=== PATIENT | male | born 1990 | race Caucasian/White ===

== ENCOUNTER 2021-04-22 06:45 | Inpatient (IN) | payer OTHER ==
[~2021-04-22] VITALS: Ht 182.9 cm; Wt 117.9 kg
[2021-04-22] VITALS: BP 148/78
[2021-04-22] MEDS ORDERED: PANTOPRAZOLE 40 MG VIAL IV ONE ×2 (07:00→15:30)
[2021-04-22] MEDS ORDERED: IV NS 0.9% 1,000 ML BAG IV ONE (07:00)
[2021-04-22] MEDS ORDERED: ONDANSETRON HCL/PF - ER 4 MG/2 ML VIAL IV ONE ×2 (07:00→15:00)
[2021-04-22] MEDS ORDERED: PANTOPRAZOLE 40 MG VIAL ONE ×2 (07:05→15:23)
[2021-04-22] MEDS ORDERED: ONDANSETRON HCL/PF 4 MG/2 ML VIAL ONE ×3 (07:05→14:35)
--- NOTE | 2021-04-22 07:11 | NUR ---
PATIENT BIB AUNT FOR C/O ABD PAIN, N/V. PATIENT THAN ADMITTED ON DRINKING BLEACH. PATIENT REFUSED TO ANSWER ANY MORE QUESTIONS AT THIS TIME. PATIENT IS A/O, RR EVEN AND UNLABORED, NO SOB NOTED. PATIENT CONNECTED TO CARDIAC AND POX, MONITOR. PATIENT DEINED SI/HI AT THIS TIME. SITTER AT BEDSIDE, WILL CONTINUE TO MONITOR.
[2021-04-22 07:39] LABS: BASOPHILS % (AUTO) 0.4 % (0.0-2.0); EOSINOPHILS % (AUTO) 0.5 % (0.0-6.0); HEMATOCRIT 44 % (39-51); HEMOGLOBIN 15.1 g/dL (13.5-17.5); LYMPHOCYTES # (AUTO) 0.8 K/uL (0.8-4.8); LYMPHOCYTES % (AUTO) 7.1 % (20.0-44.0); MEAN CORPUSCULAR HGB CONC 34 g/dl (31.0-36.0); MEAN CORPUSCULAR VOLUME 92 fL (80-96); MONOCYTES # (AUTO) 0.6 K/uL (0.1-1.30); MONOCYTES % (AUTO) 5.1 % (2.0-12.0); NEUTROPHILS # (AUTO) 10.2 K/uL (1.8-8.9); NEUTROPHILS % (AUTO) 86.9 % (43.0-81.0); PLATELET COUNT (AUTO) 263 K/uL (150-450); RED BLOOD CELL COUNT(AUTO) 4.82 MIL/uL (4.5-6.0); WHITE BLOOD COUNT (AUTO) 11.7 K/uL (4.3-11.0)
--- NOTE | 2021-04-22 07:40 | NUR ---
aunt nick, left contact number. [phone]
[2021-04-22 07:42] LABS: CREATININE 0.9 mg/dL (0.6-1.3); POTASSIUM 3.8 mmol/L (3.5-5.1)
[2021-04-22 07:46] LABS: ALCOHOL, BLOOD < 3 mg/dL (0-0)
--- NOTE | 2021-04-22 07:48 | NUR ---
PT REFUSED EKG
[2021-04-22 07:49] LABS: ALBUMIN 3.8 g/dL (3.4-5.0); BILIRUBIN,DIRECT 0.1 mg/dL (0.0-0.2); BILIRUBIN,TOTAL 0.6 mg/dL (0.2-1.0); TOTAL PROTEIN, SERUM 7.4 g/dL (6.4-8.2)
[2021-04-22 07:50] LABS: ACETAMINOPHEN 0 ug/ml (10-30)
--- NOTE | 2021-04-22 08:44 | NUR ---
SW called Art C. [phone] to evaluate this pt. for possible suicide attempt. Art did not answer, JENAE left vocemail.
--- NOTE | 2021-04-22 08:45 | NUR ---
SS consult: SS consult requested for this 30 year old male who was bib his mother and aunt after he allegedly drank bleach and was vomiting and also tied a belt around his neck. Per tox report pt. has used Cannabinoids. JENAE met with pt. bedside. he pt. is A&O X 3. Pt. states he is in the hospital because he smoked cigarettes. Pt. appears well-groomed with depressed mood & flat affect. JENAE explored pt.'s mental health Hx. Pt. states he has been diagnosed with anxiety, depression & PTSD "from childhood". Per pt. he has been prescribed Latuda and is compliant with medication. Pt. states he does not have a therapist or current psychiatrist. Pt. unable to tell SW how he refills his psych meds. Pt. denies any drug & ETOH use except for cigarettes. JENAE explored pt.'s current living situation. Pt.states he resides with his mother, Kristen Zepeda at [[address] [place] [address]]. Pt. stated he wasnts to be dischargedand return home. JENAE explored if pt. was attempting suicide. Pt. hesitantly nodded his head "no". JENAE asked if pt. has ever had thoughts of suicide or attempted. Pt. denies. Pt. also denies HI and denies hallucinations. JENAE called manager coreDakota to evaluate this pt for possible 5150 hold for psychiatric Tx. JENAE provided pt. with mental health & addiction resources and pt. accepted them. Pt. refused to give SW consent to call his mother or aunt. SW will be available as needed. JENAE notified nursing that crisis to be called. Counseling--Outpatient resources: [facility] [address] [place] [address] [place] [address] (Specializes in in-depth psychotherapy for emotional distress: anxiety, depression, interpersonal conflicts, life transitions, childhood abuse) [facility] [place] [address] [place] [address] (Assist with solving problem marital difficulties, separation & divorce, aging parents, & grief, chronic & terminal illness) [facility] [address] [place] [address] (Deal with loss & grief, anxiety, marital difficulties) [facility] [address] [facility], [address] [place] [address] (Provide in-home mental services to people who are incapable of leaving their homes) [facility] Elderly [facility] [address] [place] [address] [facility] [address] [place], [place] [id number] Mental Health Services [facility] [address] [place] [address] Services: Outpatient therapy for children, teens, young adults, adults, older adults, and families; Psychiatric services, medication support Psychiatric Outpatient Services [facility] Partial Hospitalization and Intensive Outpatient Program (Managed Care and [place] Only)[address] [facility] [phone] [facility] Partial Hospitalization and Outpatient [id number] [facility] [place], [place] [phone] [facility] Partial Hospitalization and Outpatient Ihgwrpt0084 [place], [place] [phone] [facility] [id number] [facility]. [address] [place], [place] [phone] [facility] Partial Hospitalization and Outpatient [id number] [place], [phone] Crisis and Hotline Telephone Numbers 24-Hour service unless stated [place] Crisis Hotlines: [facility] Mental Health/Crisis Line........241.179.4647 Suicide Prevention Center (24 Hours).......982.499.9162 Suicide Prevention Crisis Center.......[phone] (24 Hours) Assaults Against Women Hotline.........258.769.2528 (24 Hours -- [facility]) Women and Children Crisis Prison...........[phone] (24 Hours) Child Abuse Hotline............209.135.1697 ([facility] Rape Treatment Center (24 Hours)..........[phone] Alcoholics Anonymous (24 Hours)..........361.612.4896 Cocaine Anonymous (24 Hours)............582.489.9835 Narcotics Anonymous (24 Hours)..........686.405.2391 [facility] [address], [place] [address] ADDICTION RESOURCES For Drugs and Alcohol [facility] Substance Abuse Helpline(SAS)-[facility] Outpatient treatment, residential treatment, recovery support for youth and adults [facility] www.Aravfamilycbiix, Inc. [facility] Teen programs for drug/alcohol education and support [facility] [place]. Program for adults, sliding scale provides support and education [employer] www.ETI International.org [place]; Outpatient/residential treatment programs; transition to sober living [facility] www.cri-help.org [place]; Outpatient and residential treatment programs; transition to sober living [facility] [place]; Outpatient education and supportive programs for teens and adults [place] www.oasiswomensrecovery.org [place]; Residential treatment and work program for females only [facility] www.phoenixmiddleton.org [place]: Outpatient/residential treatment program for teens and young adults [facility] www.[facility].org [place] [facility], inpatient, outpatient for adults and youth [facility] [place], [facility]. Anastasia Ndiaye; Outpatient programs and referrals to community residential programs. Alcoholics Anonymous -SFV information and meeting and schedules www.aa-intergroup.org Hf-Gbwy-Hjqibfk https://al-anon.org/ [place] support groups for family of alcoholics. Marijuana Anonymous www.[employer].org -sfv listing of meetings Narcotics Anonymous www.na.org SOBER LIVING RESOURCES [facility] www.soberhousing.net A non-profit agency that provides resources to recovery and sober living homes throughout [facility] Men's Sober Living Homes: A Work in Progress, Fei [facility], [place] [facility] Women's Sober Living Homes: [facility] x [phone] [place], [place] [facility] Sober Living Homes: [facility]
--- NOTE | 2021-04-22 09:25 | NUR ---
THE PATIENT IS ALERT AND ORIENTED X4. DENIES PAIN. IN ROOM AIR AND DENIES SOB. RESPIRATION REGULAR AND UNLABORED. WILL CONTINUE TO MONITOR THE PATIENT.
--- NOTE | 2021-04-22 10:16 | NUR ---
CALLED ART BUT DID NOT ANSWER.
--- NOTE | 2021-04-22 10:36 | NUR ---
ART AT BEDSIDE
--- NOTE | 2021-04-22 10:52 | NUR ---
COVID SWAB DONE AND SENT TO LAB
--- NOTE | 2021-04-22 11:30 | NUR ---
ART THE PSYCH CLINICIAN AT THE BEDSIDE
--- NOTE | 2021-04-22 13:27 | NUR ---
PCR SWAB DONE AND SENT TO THE LAB
--- NOTE | 2021-04-22 13:55 | NUR ---
PT GOT ACCPETED TO [facility]. ACCEPTING DR. RAHMAN NUMBER FOR REPORT- [phone] ROOM N26A
--- NOTE | 2021-04-22 13:59 | NUR ---
CALLED [facility] AND HAS AN ETA OF [phone]
--- NOTE | 2021-04-22 14:03 | NUR ---
REPORT GIVEN TO NURSE SCOTT FROM [facility]
--- NOTE | 2021-04-22 14:41 | NUR ---
PAGED DR. THAKUR.
[2021-04-22] MEDS ORDERED: PANTOPRAZOLE 80 MG in IV NS 0.9% 500 ML IV ONE (15:30)
[2021-04-22 15:54] LABS: BASOPHILS # (AUTO) 0.1 K/uL (0.0-0.2); BASOPHILS % (AUTO) 0.5 % (0.0-2.0); EOSINOPHILS % (AUTO) 0.9 % (0.0-6.0); HEMATOCRIT 46 % (39-51); HEMOGLOBIN 15.5 g/dL (13.5-17.5); LYMPHOCYTES % (AUTO) 11.3 % (20.0-44.0); MEAN CORPUSCULAR HGB CONC 33 g/dl (31.0-36.0); MEAN CORPUSCULAR VOLUME 93 fL (80-96); MONOCYTES # (AUTO) 1.2 K/uL (0.1-1.30); MONOCYTES % (AUTO) 6.7 % (2.0-12.0); NEUTROPHILS # (AUTO) 14.3 K/uL (1.8-8.9); NEUTROPHILS % (AUTO) 80.6 % (43.0-81.0); PLATELET COUNT (AUTO) 258 K/uL (150-450); WHITE BLOOD COUNT (AUTO) 17.7 K/uL (4.3-11.0)
[2021-04-22 16:02] LABS: CALCIUM, SERUM 9.2 mg/dL (8.5-10.1); CREATININE 0.7 mg/dL (0.6-1.3); POTASSIUM 4.2 mmol/L (3.5-5.1)
--- NOTE | 2021-04-22 20:09 | NUR ---
report given to shania stevenson
--- NOTE | 2021-04-22 20:10 | NUR ---
RN NOTE REPORT RECEIVED BY VENICE STEVENS FOR DOM.
[2021-04-22 20:15] LABS: BAND % (MANUAL) 1 % (0.0-5.0); LYMPHOCYTES % (MANUAL) 19 % (16-48); MONOCYTES % (MANUAL) 8 % (0-11.0); NEUTROPHILS % (MANUAL) 72 (42-76)
[2021-04-22] MEDS ORDERED: ACETAMINOPHEN 325 MG TABLET PO PRN (21:00)
[2021-04-22] MEDS ORDERED: ONDANSETRON HCL/PF 4 MG/2 ML VIAL IVP PRN (21:00)
[2021-04-22] MEDS ORDERED: Z GUARD REMEDY 2 OZ OINT TP PRN (21:00)
--- NOTE | 2021-04-22 21:19 | NUR ---
PATIENT TRANSFERRED UNDER ACLS, VSS, NO ACUTE DISTRESS NOTED.
--- NOTE | 2021-04-22 21:20 | NUR ---
RN NOTE PT BROUGHT TO UNIT VIA GURNEY FROM ER. PT IS ON ROOM AIR SHOWING NO S/S OF RESP DISTRESS/SOB. BREATHING EVEN AND UNLABORED. NO SIGNS OF DISTRESS. PT IS A/OX4. NSR ON MONITOR. PT IS ABLE TO AMBULATE. SKIN INTACT. ON REG DIET. SITTER AT BEDSIDE. IV ACCESS NOTED ON LEFT HAND. LINE FLUSHED, PATENT, AND INTACT WITH NO SIGNS OF INFILTRATION. ALL SAFETY MEASURES IMPLEMENTED. CALL LIGHT WITHIN REACH. BED ALARM ON. BED LOCKED AND IN LOWEST POSITION. SIDE RAILS UP. WILL CONTINUE TO MONITOR AND ASSESS FOR ANY CHANGES DURING SHIFT.
[2021-04-22 21:30] VITALS: BP 148/78
[2021-04-22] MEDS: PANTOPRAZOLE 40 MG VIAL IV SCH (21:46)
[2021-04-22] MEDS: SUCRALFATE 1 G/10 ML UDC PO SCH (21:46)
[2021-04-22] MEDS: IV LR 1000 ML 1,000 ML IV PRN (21:46)
[2021-04-22 22:10] LABS: HEMATOCRIT 44 % (39-51); HEMOGLOBIN 14.7 g/dL (13.5-17.5); MEAN CORPUSCULAR HGB CONC 34 g/dl (31.0-36.0); MEAN CORPUSCULAR VOLUME 91 fL (80-96); PLATELET COUNT (AUTO) 265 K/uL (150-450); WHITE BLOOD COUNT (AUTO) 15.3 K/uL (4.3-11.0)
[2021-04-23] VITALS: BP 130/70
[2021-04-23 03:33] LABS: BASOPHILS # (AUTO) 0.1 K/uL (0.0-0.2); BASOPHILS % (AUTO) 0.6 % (0.0-2.0); EOSINOPHILS % (AUTO) 1.6 % (0.0-6.0); HEMATOCRIT 44 % (39-51); HEMOGLOBIN 14.9 g/dL (13.5-17.5); LYMPHOCYTES % (AUTO) 14.9 % (20.0-44.0); MEAN CORPUSCULAR HGB CONC 34 g/dl (31.0-36.0); MEAN CORPUSCULAR VOLUME 91 fL (80-96); MONOCYTES % (AUTO) 7.4 % (2.0-12.0); NEUTROPHILS # (AUTO) 10.1 K/uL (1.8-8.9); NEUTROPHILS % (AUTO) 75.5 % (43.0-81.0); PLATELET COUNT (AUTO) 247 K/uL (150-450); RED BLOOD CELL COUNT(AUTO) 4.82 MIL/uL (4.5-6.0); WHITE BLOOD COUNT (AUTO) 13.4 K/uL (4.3-11.0)
[2021-04-23 03:53] LABS: ALBUMIN 3.2 g/dL (3.4-5.0); BILIRUBIN,TOTAL 0.6 mg/dL (0.2-1.0); CALCIUM, SERUM 8.5 mg/dL (8.5-10.1); CREATININE 0.8 mg/dL (0.6-1.3); MAGNESIUM 1.7 mg/dL (1.8-2.4); PHOSPHORUS 3.4 mg/dL (2.5-4.9); POTASSIUM 3.7 mmol/L (3.5-5.1); TOTAL PROTEIN, SERUM 6.5 g/dL (6.4-8.2)
[2021-04-23 04:00] VITALS: BP 131/74
--- NOTE | 2021-04-23 07:15 | NUR ---
RN NOTE NO CHANGES IN PT CONDITION DURING SHIFT. PT IS ON ROOM AIR SHOWING NO S/S OF RESP DISTRESS/SOB. BREATHING EVEN AND UNLABORED. NO SIGNS OF DISTRESS. PT IS A/OX4. NSR ON MONITOR. PT IS ABLE TO AMBULATE. SKIN INTACT. ON REG DIET. SITTER AT BEDSIDE. IV ACCESS NOTED ON LEFT HAND. LINE FLUSHED, PATENT, AND INTACT WITH NO SIGNS OF INFILTRATION. ALL DUE MEDS GIVEN ORDERED. PT KEPT CLEAN AND COMFORTABLE. SAFETY MEASURES IMPLEMENTED. CALL LIGHT WITHIN REACH. BED ALARM ON. BED LOCKED AND IN LOWEST POSITION. SIDE RAILS UP. WILL ENDORSE TO MORNING SHIFT RN FOR DOM.
--- NOTE | 2021-04-23 08:35 | NUR ---
Psych consult to be requested: JENAE called and spoke to charge nurseRosi to have her fax: facesheet, [id number] hold and Physician's order for psych Consult : Dr. Bal (continuity writer psychiatrist) to [facility]. oRsi is agreeable and stated she will follow up.
[2021-04-23 09:24] LABS: HEMATOCRIT 44 % (39-51); HEMOGLOBIN 15.1 g/dL (13.5-17.5); MEAN CORPUSCULAR HGB CONC 34 g/dl (31.0-36.0); MEAN CORPUSCULAR VOLUME 91 fL (80-96); PLATELET COUNT (AUTO) 231 K/uL (150-450); RED BLOOD CELL COUNT(AUTO) 4.85 MIL/uL (4.5-6.0); WHITE BLOOD COUNT (AUTO) 13.3 K/uL (4.3-11.0)
[2021-04-23] MEDS: PANTOPRAZOLE 40 MG VIAL IV SCH (10:17)
[2021-04-23] MEDS: SUCRALFATE 1 G/10 ML UDC PO SCH ×4 (10:17→21:33)
[2021-04-23] MEDS: Magnesium 1GM/D5W 100ML PREMIX 100 ML IV SCH ×2 (10:20→10:21)
--- NOTE | 2021-04-23 11:33 | NUR ---
SW follow-up with Nurse Aranda. The nurse mentioned that she faxed over pt.'s information to [facility] (Dr. Bal).
--- NOTE | 2021-04-23 11:35 | NUR ---
RECEIVED PATIENT ASLEEP, HARD TO AROUSE TO WAKE UP, ALLOWED TO SLEEP TILL 0900 AM, WOKE UP EXPLAINED PROCEDURE OF THE ESOPHAGOGATRODUEDENOSCOPY WITH POSSIBLE BIOPSY, POLYPECTOMY AND CAUTERIZATION & POSSIBLE SCLEROTHERAPY POSSIBLE DIALTION AND POSSIBLE ESOPHAGEAL VARICEAL BANDING UNDER MODERATE SEDATION, HOWEVER PATIENT REFUSED, EDUCATED AND EXPLAINED REASONING IN DETAIL BUT REFUSED TO SIGN CONSENT, PATIENTS DECISION HONORED AND PROCEDURE CANCELLED MD NOTIFIED, FAMILY REQUESTED A SPINAL TAP - LP, BRAIN SCAN TO RULE OUT NUEROSYPHILIS OR HIV OR STROKE, HOWEVER PATIENT DOES NOT SHOW S/S TO MEET THE REQUIRMENTS TO HAVE THESE ORDERS FOR HIS TREATMENT, MD AWARE FAMILY / AUNT SPOKE TO MYSELF AND MD, AWAITING ANY NEW ORDERS AT THIS TIME. NPO ORDER IS D/C AND PATIENT IS NOW ALLOWED TO EAT, PROVIDED NOURISHMENT FOOD AND BEVERAGES NO ASPIRATION NOTED AT THIS TIME, IV PATENT FLUSHING AND MG RUNNING IN IV SITE TOLERATING WELL. CALL LIGHT IN REACH.
[2021-04-23 12:00] VITALS: BP 138/78
[2021-04-23 15:29] LABS: HEMATOCRIT 46 % (39-51); HEMOGLOBIN 15.4 g/dL (13.5-17.5); MEAN CORPUSCULAR HGB CONC 34 g/dl (31.0-36.0); MEAN CORPUSCULAR VOLUME 91 fL (80-96); PLATELET COUNT (AUTO) 248 K/uL (150-450); RED BLOOD CELL COUNT(AUTO) 5.02 MIL/uL (4.5-6.0); WHITE BLOOD COUNT (AUTO) 14.3 K/uL (4.3-11.0)
--- NOTE | 2021-04-23 15:52 | NUR ---
JENAE faxed clinicals to [facility]: [facility] [address] [facility] [address]; Unit TEL: [phone] Intake [facility]: TEL: [phone] [facility] ATTN:Rodney tel:[phone] NEEDS EKG Padmini Kapadia (any age 13 and up) fax:[phone] tel:[phone] ATTN: adria EMANUEL is out after 4 :30 pm charge nurse notified to follow up with status of admission
--- NOTE | 2021-04-23 19:10 | NUR ---
RN NOTES RECEIVED REPORT FROM MORNING NURSE. PATIENT IN BED A/O X 4. WITH SITTER AT BEDSIDE. WITH IV ACCESS AT L HAND PATENT FLUSHES WELL. WITH ONGOING IVF OF LR @100 CC/HR. NO SOB, NO DISTRESS. ALL SAFETY MEASURES IN PLACE, BED ON LOWEST POSITION AND LOCKED. HOB ELEVATED, CALL LIGHT WITHIN REACH. WILL CLOSELY MONITOR THE PATIENT
--- NOTE | 2021-04-23 19:50 | NUR ---
PATIENTS PACKET, INFO, AND MEDICATION LIST ALL COMPLETED WITH EDUCATIONAL MATERIAL TO PROVIDE TO [facility] AND PATIENT EDUCATED ON ALTERNATIVE METHODS TO USE THAT ARE MORE APPROPRIATE TO HELP COPE WITH STRESS AND ANGER ISSUES. PT LISTENED BUT STILL APPEARS TO BE IN A SUICIDAL STATE OF MIND. LED PT INTO PRAYER AND PROVIDED GUIDANCE TO NOT TAKE HIS LIFE, ENCOURAGED THINGS WILL GET BETTER AND REDIRECTED TO COPE WITH HIS FEELINGS IN A MORE POSITIVE MANNER, LISTENED AND DID TAKE NOTE BUT APPEARS TO REMAIN IN GREAT DANGER OF ANOTHER SUICIDE ATTEMPT AT THIS TIME, SITTER AT SIDE TO MONITOR CLOSELY FOR SAFETY, PLAN IS TO TRANSFER PT OUT THIS EVENING TO [facility]. ENDORSED INFORMATION AND DETAILS TO ONCOMING NURSE AND COMPLETED ALL D/C INFORMATION FOR THE TRANSFER.
[2021-04-23 20:00] VITALS: BP 135/79
[2021-04-23] MEDS ORDERED: TRAZODONE 50 MG TABLET PO SCH (20:30)
--- NOTE | 2021-04-23 21:10 | NUR ---
RN NOTES SEEN AND EXAMINED BY DR PATEL WITH ORDER MADE AND CARRIED OUT. WILL CONTINUE TOP MONITOR THE PATIENT. FOR POSSIBLE TRANSFER TO [facility].
[2021-04-23] MEDS: IV LR 1000 ML 1,000 ML IV PRN (22:34)
[2021-04-24 04:00] VITALS: BP 108/66
--- NOTE | 2021-04-24 06:35 | NUR ---
RN NOTES PATIENT REMAINS STABLE THE WHOLE SHIFT NO SIGNIFICANT CHANGES IN HEALTH CONDITION. NO SOB, NO DISTRESS NO PAIN NOTED THIS SHIFT. SITTER AT BEDSIDE AT ALL TIMES. NO SUICIDAL IDEATION NOTED. ALL DUE MEDS GIVEN ORDERED. ALL SAFETY MEASURES IN PLACE, BED ON LOWEST POSITION AND LOCKED. HOB ELEVATED.ALL NEEDS ATTENDED. ENDORSED
[2021-04-24 06:51] LABS: CALCIUM, SERUM 8.4 mg/dL (8.5-10.1); CREATININE 0.7 mg/dL (0.6-1.3); MAGNESIUM 1.9 mg/dL (1.8-2.4); POTASSIUM 3.8 mmol/L (3.5-5.1)
--- NOTE | 2021-04-24 09:21 | NUR ---
followup with [facility] psych intake for now unable to accept patient. made aware.
[2021-04-24 12:00] VITALS: BP 132/70
[2021-04-24] MEDS: SUCRALFATE 1 G/10 ML UDC PO SCH ×4 (12:20→21:50)
[2021-04-24] MEDS: PANTOPRAZOLE 40 MG VIAL IV SCH (12:20)
--- NOTE | 2021-04-24 19:10 | NUR ---
RN NOTES RECEIVED REPORT FROM MORNING NURSE. PATIENT A/O X 4 NO DISTRESS NO PAIN NOTED. WITH IV ACCESS ON L HAND PATENT FLUSHES WELL. SITTER AT BEDSIDE AT ALL TIMES WILL CONTINUE TO MONITOR
[2021-04-24 20:00] VITALS: BP 116/74
[2021-04-24] MEDS ORDERED: TRAZODONE 50 MG TABLET PO PRN (21:00)
[2021-04-24] MEDS ORDERED: TRAZODONE 50 MG TABLET PO SCH (22:00)
--- NOTE | 2021-04-24 22:00 | NUR ---
RN NOTES SEEN AND EXAMINED BY DR PATEL WITH NEW ORDER OKAY TO D/C HOME.
--- NOTE | 2021-04-25 | NUR ---
RN NOTES RECEIVED ORDER TO D/C [address] PATEL NOTED AND CARRIED OUT.
[2021-04-25 04:00] VITALS: BP 122/65
--- NOTE | 2021-04-25 06:32 | NUR ---
RN NOTES PATIENT REMAINS STABLE THE WHOLE SHIFT, NO SIGNIFICANT CHANGES IN HEALTH CONDITION THIS SHIFT. PATIENT A/O X 4 ABLE TO MAKE NEEDS KNOWN. PATIENT ON ROOM AIR TOLERATING WELL SATURATION OF 99%. SITTER AT BEDSIDE AT ALL TIMES. NO EPISODE OF SUICIDAL IDEATION THIS SHIFT. ALL SAFETY MEASURES IN PLACE AT ALL TIMES, HOB ELEVATED, BED ON LOWEST POSITION AND LOCKED. CALL LIGHT WITHIN REACH. ALL NEEDS ATTENDED. FREQUENT VISUAL MONITORING RENDERED. ENDORSED
--- NOTE | 2021-04-25 07:30 | NUR ---
RN OPENING NOTE RECEIVED PATIENT ASLEEP IN BED, EASY TO AROUSE. ALERT AND ORIENTED X4. BREATHING IS EVEN AND UNLABORED; NO SOB NOTED. NO S/SX OF DISTRESS NOTED. NO C/O PAIN AT THIS TIME. IV ACCESS LHAND#18 PATENT AND INTACT. SAFETY PRECAUTIONS IN PLACE; BED IN LOW POSITION AND LOCKED, SIDE RAILS UP X2, CALL LIGHT WITHIN REACH. WILL CONTINUE TO MONITOR PATIENT.
[2021-04-25] MEDS: SUCRALFATE 1 G/10 ML UDC PO SCH (08:48)
[2021-04-25] MEDS ORDERED: PANTOPRAZOLE 40 MG TABLET.DR PO SCH (09:00)
--- NOTE | 2021-04-25 12:23 | NUR ---
WELL HEAD PUMPER NOTE PT WAS DISCHARGED WITH STABLE VITALS. DISCHARGE INSTRUCTIONS REVIEWED WITH PATIENT AND FAMILY AT BEDSIDE AND SIGNED. ALL BELONGINGS RETURNED AND FORM SIGNED. IV BAND AND IV ACCESS REMOVED. PT WAS LEFT UNIT WITH FAMILY AND WAS OBSERVED GETTING INTO PRIVATE CAR.
== END 2021-04-25 13:00 | disposition home or self-care (01) | DRG 816 ==
LOC: ER 06:47 → MEDSG1 20:05
PROVIDERS: ADMIT Nurse Practitioner Acute Care; ATTEND Nurse Practitioner Acute Care
DX: T54.3X1A Toxic effect of corrosive alkalis and alkali-like substances, accidental (unintentional), initial encounter (principal); G93.41 Metabolic encephalopathy; K22.11 Ulcer of esophagus with bleeding; K92.2 Gastrointestinal hemorrhage, unspecified; F29 Unspecified psychosis not due to a substance or known physiological condition; Y92.009 Unspecified place in unspecified non-institutional (private) residence as the place of occurrence of the external cause; F17.210 Nicotine dependence, cigarettes, uncomplicated; D72.829 Elevated white blood cell count, unspecified; F32.A Depression, unspecified; F43.10 Post-traumatic stress disorder, unspecified; Z20.822 Contact with and (suspected) exposure to COVID-19
CPT/HCPCS: 36415; 80048-TC; 80053-TC; 80076-TC; 82962-TC; 83690-TC; 83735-TC; 84100-TC; 85025-TC; 85027-TC; 85610-TC; 85730-TC; 86850-TC; 87081-TC; C9113; C9803; G0378; G0480; J2405; J3475; J7120; U0003